=== PATIENT | female | born 1995 | race Hispanic/Latino ===

== ENCOUNTER 2019-08-17 16:28 | Inpatient (IN) | payer OTHER ==
[2019-08-17] MEDS ORDERED: PENICILLIN 5 MU in NA CHLORIDE 0.9% 100 ML IV ONE (17:09)
[2019-08-17] MEDS ORDERED: CARBOPROST TROME 250 MCG/ML IM PRN (17:09)
[2019-08-17] MEDS ORDERED: METHYLERGONOVINE 0.2MG/ML AMP IM PRN (17:09)
[2019-08-17] MEDS ORDERED: Ringers Lactate 1,000 ML IV PRN (17:09)
[2019-08-17] MEDS ORDERED: OXYTOCIN/LR 20 UNIT/1,000 ML BAG IV ONE (17:22)
[2019-08-17 17:36] LABS: Absolute Lymphocytes (CBC) 1.3 K/uL (0.7-4.9); Basophils % 0.2 % (0-1.3); Hematocrit 32.7 % (36.0-45.0); Lymphocytes % 21.4 % (15.3-44.8); MPV 12.4 fL (7.6-11.3); RBC Red Blood Cell Count 4.01 M/uL (3.86-4.86)
[2019-08-17 17:52] LABS: Urine Appearance CLEAR; Urine Bilirubin NEGATIVE (NEG); Urine Blood 2+ (NEG); Urine Color YELLOW; Urine Glucose NEGATIVE (NEG); Urine Protein NEGATIVE (NEG); Urine pH 6.5 (5.0-7.0)
[2019-08-17 17:53] VITALS: BMI 38.6
[2019-08-17 17:57] LABS: Urine Microscopic Reflex ORDER UMIC
[2019-08-17] MEDS ORDERED: Ringers Lactate 1,000 ML IV SCH (18:00)
[2019-08-17] MEDS ORDERED: OXYTOCIN/LR 20 UNIT/1,000 ML BAG IV SCH (18:00)
[2019-08-17 18:08] LABS: Urine Bacteria >50 /HPF (<20); Urine Culture Reflex Order REFLEXED; Urine Mucus 3+ /HPF (NONE SEEN)
[2019-08-17] MEDS ORDERED: FENTANYL CITR 100 MCG/2 ML IV ONE ×2 (19:15→20:30)
[2019-08-17] MEDS ORDERED: ROPIVACAINE HCL 100 ML IV PRN (19:15)
[2019-08-17] MEDS ORDERED: ROPIVACAINE HCL 2 MG/ML 100ML IV SCH (20:00)
[2019-08-17] MEDS ORDERED: FENTANYL/BUPIVACAINE/NS/PF 200 MCG/100 ML BAG EP ONE (21:01)
[2019-08-17] MEDS ORDERED: BUPIVACAINE 0.25% PF 10 ML VIAL ONE (21:04)
[2019-08-17] MEDS ORDERED: PENICILLIN 2.5 MU in NA CHLORIDE 0.9% 100 ML IV SCH ×2 (22:00→23:00)
[2019-08-18 01:06] LABS: RPR (Rapid Plasma Reagin) NON-REACT (NON-REACT)
[2019-08-18] MEDS ORDERED: ONDANSETRON 4 MG (ODT) TAB PO PRN (01:41)
[2019-08-18] MEDS ORDERED: CARBOPROST TROME 250 MCG/ML IM PRN (01:41)
[2019-08-18] MEDS ORDERED: IBUPROFEN 200 MG TAB PO PRN (01:41)
[2019-08-18] MEDS ORDERED: METHYLERGONOVINE 0.2MG/ML AMP IM PRN (01:41)
[2019-08-18] MEDS ORDERED: Oxycodone HCl/Acetaminophen 1 TAB TAB PO PRN (01:41)
[2019-08-18] MEDS ORDERED: METHYLERGONOVINE 0.2 MG TAB PO PRN (01:41)
--- NOTE | 2019-08-18 01:44 | P.BOP ---
Preoperative diagnosis: 40 wk Postoperative diagnosis: SCVD viable male infant Primary procedure: Delivery Secondary procedure: repair midline and bilateral periurethral lacerations. Estimated blood loss: 300 Anesthesia: epidural Complications: None Transferred to: Other (273) Condition: Good
[2019-08-18] MEDS ORDERED: OXYTOCIN/LR 20 UNIT/1,000 ML BAG IV SCH (02:00)
--- NOTE | 2019-08-18 18:52 | OP ---
Surgeon: Roel Gonzalez MD Ms. Gonzalez is a 24-year-old female 2, para 1-0-0-1, at 40+ weeks gestation, admitted for induction of labor secondary to post date . She had an uneventful labor and delivery. First stage of labor 7 hours and 57 minutes, second stage of labor 7 minutes. She delivered over sp ontaneous controlled vaginal delivery a 7-pound 5-ounce male , 9 and 10. After delayed c ord clamping. The cord was clamped, cut, and the placed on mother's upper abdomen. Cord bloo d was obtained. The placenta was spontaneously expelled and appeared to be intact. Intrauterine exa m revealed no retained placental fragments. She suffered a midline second-degree perineal laceration and bilateral periurethral lacerations. These were repaired in usual fashion with 3-0 Vicryl suture . She had had an epidural catheter placed and received excellent benefit from this. Quantitative bl ood loss was 113 mL. She was prophylaxed during her labor course with penicillin secondary to positiv e beta strep carriage noted during her . LYNNETTE/MAKENNA Voice ID: [id number] Report ID: [id number]
[2019-08-19 08:18] VITALS: BP 120/86; TEMP 97.3
--- NOTE | 2019-08-20 04:26 | DS ---
Date of Discharge: 08/19/2019 Final Hospital Discharge Diagnoses: Term , delivered; iron deficiency anemia. Complications: None. Procedures: Artificial rupture membranes, Pitocin induction of labor, placement of epidural catheter , prophylaxis for beta strep carriage, spontaneous controlled vaginal delivery of viable . Hospital Course: The patient is a 24-year-old female, 2, para 1-0-0-1, admi tted for induction of labor secondary to term with a favorable cervix. Labor was uncomplic ated. She delivered a 7-pound 5-ounce male , 9 and 10. She was dismissed to be seen lucrecia mary grace in my office in 1 week with prescription for Tylenol No. 3 #10 for pain relief. Lab work included an admission hemoglobin and hematocrit of 11.1 and 32.7, dismissal 30.1. She is Rh positive blood ty pe. Rubella immune. She was dismissed with the usual post vaginal delivery activity restrictions. LYNNETTE/MAKENNA Voice ID: [id number] Report ID: [id number]
[2019-08-21 21:40] LABS: HBsAG Nonreactive (Nonreactive)
== END 2019-08-19 10:55 | disposition home or self-care (01) | DRG 807 ==
LOC: 2ND-WC 16:28
PROVIDERS: ADMIT Specialist; ATTEND Specialist
PROC: 0KQM0ZZ Repair Perineum Muscle, Open Approach (ICD-10-PCS; principal; 2019-08-17)
PROC: 10E0XZZ Delivery of Products of Conception, External Approach (ICD-10-PCS; 2019-08-17)
PROC: 0UQMXZZ Repair Vulva, External Approach (ICD-10-PCS; 2019-08-17)
PROC: 10907ZC Drainage of Amniotic Fluid, Therapeutic from Products of Conception, Via Natural or Artificial Opening (ICD-10-PCS; 2019-08-17)
DX: O71.82 Other specified trauma to perineum and vulva (principal); Z37.0 Single live birth; O70.1 Second degree perineal laceration during delivery; O99.824 Streptococcus B carrier state complicating childbirth; O99.02 Anemia complicating childbirth; D50.9 Iron deficiency anemia, unspecified; Z3A.40 40 weeks gestation of pregnancy
CPT/HCPCS: 36415; 81003; 81015; 85014; 85025; 86592; 86901; 87086; 87088; 87340; J2210; J2590; J2795; J3010; J7120

== ENCOUNTER 2019-12-23 22:59 | Emergency (ER) | payer OTHER ==
[2019-12-24] MEDS ORDERED: NA CHLORIDE 0.9% 1,000 ML ONE (01:14)
[2019-12-24] MEDS ORDERED: CEFTRIAXONE/SWI 1gm 1 GM/10 ML SYR ONE (01:14)
[2019-12-24] MEDS ORDERED: FENTANYL CITR 100 MCG/2 ML ONE (01:14)
[2019-12-24 01:30] LABS: Absolute Lymphocytes (CBC) 1.1 K/uL (0.7-4.9); Basophils % 0.2 % (0-1.3); Hematocrit 35.5 % (36.0-45.0); Lymphocytes % 8.3 % (15.3-44.8); MPV 10.7 fL (7.6-11.3); RBC Red Blood Cell Count 4.65 M/uL (3.86-4.86)
[2019-12-24 01:46] LABS: BUN Blood Urea Nitrogen 7 mg/dL (7-18); Bicarbonate 26 mmol/L (21-32); Glucose Level 102 mg/dL (74-106); Potassium 3.7 mmol/L (3.5-5.1); Sodium Level 141 mmol/L (136-145)
--- NOTE | 2019-12-24 02:52 | EDPHYS ---
Physician Documentation [facility] Name: Carmella Gonzalez Age: 24 yrs Sex: Female : 1995 Arrival Date: 12/23/2019 Time: 23:00 Bed 7 Private MD: ED Physician Clark Srinivasan HPI: 12/23 00:52 This 24 yrs old Female presents to ER via Ambulatory with complaints of Breast snw Problem, Dizziness. 00:52 Onset: The symptoms/episode began/occurred gradually, 1 week(s) ago, and became worse snw and became persistent. Associated signs and symptoms: Pertinent positives: dizziness, fatigue, malaise, chills. Modifying factors: the patient symptoms are aggravated by , pressure. The patient has not experienced similar symptoms in the past. The patient has not recently seen a physician. 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 - Social history:: Smoking status: Patient denies any tobacco usage or history of. Patient uses alcohol, but reports only rare drinking. Patient/guardian denies using street drugs, IV drugs. ROS: 12/23 00:51 Constitutional: Negative for fever, chills, and weight loss, + fatigue, orthostatic snw dizziness, tenderness to left breast Eyes: Negative for injury, pain, redness, and discharge, ENT: Negative for injury, pain, and discharge, Neck: Negative for injury, pain, and swelling, Cardiovascular: Negative for chest pain, palpitations, and edema, Respiratory: Negative for shortness of breath, cough, wheezing, and pleuritic chest pain, Abdomen/GI: Negative for abdominal pain, nausea, vomiting, diarrhea, and constipation, Back: Negative for injury and pain, : Negative for injury, bleeding, discharge, and swelling, MS/Extremity: Negative for injury and deformity, Skin: Negative for injury, rash, and discoloration, Neuro: Negative for headache, weakness, numbness, tingling, and seizure. Exam: 00:51 Constitutional: This is a well developed, well nourished patient who is awake, alert, snw and in no acute distress. Head/Face: Normocephalic, atraumatic. Eyes: Pupils equal round and reactive to light, extra-ocular motions intact. Lids and lashes normal. Conjunctiva and sclera are non-icteric and not injected. Cornea within normal limits. Periorbital areas with no swelling, redness, or edema. ENT: Nares patent. No nasal discharge, no septal abnormalities noted. Tympanic membranes are normal and external auditory canals are clear. Oropharynx with no redness, swelling, or masses, exudates, or evidence of obstruction, uvula midline. Mucous membranes moist. Neck: Trachea midline, no thyromegaly or masses palpated, and no cervical lymphadenopathy. Supple, full range of motion without nuchal rigidity, or vertebral point tenderness. No Meningismus. Cardiovascular: Regular rate and rhythm with a normal S1 and S2. No gallops, murmurs, or rubs. Normal PMI, no JVD. No pulse deficits. Respiratory: Lungs have equal breath sounds bilaterally, clear to auscultation and percussion. No rales, rhonchi or wheezes noted. No increased work of breathing, no retractions or nasal flaring. Abdomen/GI: Soft, non-tender, with normal bowel sounds. No distension or tympany. No guarding or rebound. No evidence of tenderness throughout. Back: No spinal tenderness. No costovertebral tenderness. Full range of motion. Skin: Warm, dry with normal turgor. Normal color with no rashes, no lesions, and no evidence of cellulitis. MS/ Extremity: Pulses equal, no cyanosis. Neurovascular intact. Full, normal range of motion. Neuro: Awake and alert, GCS 15, oriented to person, place, time, and situation. Cranial nerves II-XII grossly intact. Motor strength 5/5 in all extremities. Sensory grossly intact. Cerebellar exam normal. Normal gait. Psych: Awake, alert, with orientation to person, place and time. Behavior, mood, and affect are within normal limits. 00:51 Chest/axilla: Inspection: normal, Palpation: tenderness, that is moderate, of the left breast, Breasts: tenderness, that is moderate, of the left breast, at 7-9 O'clock postition. Vital Signs: 12/22 23:20 BP 125 / 87; Pulse 101; Resp 18; Temp 98.4(TE); Pulse Ox 98% ; Weight 99.79 kg; Height ao 5 ft. 5 in. (165.10 cm); Pain /10; 12/23 01:54 BP 107 / 68; Pulse 79; Resp 18; Pulse Ox 99% on R/A; wh 12/22 23:20 Body Mass Index 36.61 (99.79 kg, 165.10 cm) ao MDM: 00:56 Patient medically screened. snw 01:54 Data reviewed: vital signs, nurses notes. Data interpreted: Pulse oximetry: on room air snw is 99 %. Interpretation: normal. Counseling: I had a detailed discussion with the patient and/or guardian regarding: the historical points, exam findings, and any diagnostic results supporting the discharge/admit diagnosis, lab results, the need for outpatient follow up, to return to the emergency department if symptoms worsen or persist or if there are any questions or concerns that arise at home. Special discussion: Based on the history and exam findings, there is no indication for further emergent testing or inpatient evaluation. I discussed with the patient/guardian the need to see the OB Gyne specialist for further evaluation of the symptoms. 12/23 00:55 Order name: CBC with Diff; Complete Time: 01:50 snw 12/23 00:55 Order name: Chem 7; Complete Time: 01:50 snw Administered Medications: 01:11 Drug: NS 0.9% 1000 ml Route: IV; Rate: 1 bolus; Site: right antecubital; 01:53 Follow up: Response: No adverse reaction; IV Status: Completed infusion 01:13 Drug: Rocephin 1 grams Route: IV; Rate: calculated rate; Site: right antecubital; 01:53 Follow up: Response: No adverse reaction; IV Status: Completed infusion 01:15 Drug: fentaNYL (PF) 25 mcg {Note: RASS 0.} Route: IVP; Site: right antecubital; 01:53 Follow up: Response: No adverse reaction; Pain is decreased; RASS: Alert and Calm (0) Disposition: 06:49 Co-signature as Attending Physician, Clark Srinivasan MD. [email or web address] Disposition: 12/24/19 01:53 Discharged to Home. Impression: Nonpurulent mastitis associated with . - Condition is Stable. - Discharge Instructions: and Mastitis, Heat Therapy. - Prescriptions for Dicloxacillin 500 mg Oral Capsule - take 1 capsule by ORAL route every 6 hours for 10 days; 40 capsule. - Medication Reconciliation Form, Thank You Letter, Antibiotic Education, Prescription Opioid Use form. - Follow up: Emergency Department; When: As needed; Reason: Worsening of condition. Follow up: Private Physician; When: 1 - 2 days; Reason: Recheck today's complaints, Continuance of care, Re-evaluation by your physician. - Notes: Please continue Signatures: Dispatcher [employer] EDMS Darling Duff, OTM CONSULTANT-C OTM CONSULTANT-Csnw Jf Brantley, RN RN Nish Bach Maurice, MD MD [email or web address] Corrections: (The following items were deleted from the chart) 02:02 01:53 12/24/2019 01:53 Discharged to Home. Impression: Nonpurulent mastitis associated wh with . Condition is Stable. Discharge Instructions: and Mastitis. Prescriptions for Dicloxacillin 500 mg Oral Capsule - take 1 capsule by ORAL route every 6 hours for 10 days; 40 capsule. and Forms are Medication Reconciliation Form, Thank You Letter, Antibiotic Education, Prescription Opioid Use. Follow up: Emergency Department; When: As needed; Reason: Worsening of condition. Follow up: Private Physician; When: 1 - 2 days; Reason: Recheck today's complaints, Continuance of care, Re-evaluation by your physician. snw
--- NOTE | 2019-12-24 02:52 | ER ---
Nurse's Notes [facility] Name: Carmella Gonzalez Age: 24 yrs Sex: Female : 1995 Arrival Date: 12/23/2019 Time: 23:00 Bed 7 Private MD: Diagnosis: Nonpurulent mastitis associated with Presentation: 12/22 23:20 Chief complaint: Patient states: Pt is breast pumping to feed her baby and today ao started been tired and weakness and her breast started hurt and swelling. Pt states that she feels like getting and infection and she noticed a pus like coming out her breast. Pt also report a PE that was just about to be treated and then it was disappeared. Coronavirus screen: Proceed with normal triage. Ebola Screen: Patient negative for fever greater than or equal to 101.5 degrees Fahrenheit, and additional compatible Ebola Virus Disease symptoms Patient denies exposure to infectious person. Patient denies travel to an Ebola-affected area in the 21 days before illness onset. Initial Sepsis Screen: Does the patient meet any 2 criteria? No. Patient's initial sepsis screen is negative. Does the patient have a suspected source of infection? Yes: Other: Breast infection. Risk Assessment: Do you want to hurt yourself or someone else? Patient reports no desire to harm self or others. Onset of symptoms was December 16, 2019. 23:20 Method Of Arrival: Ambulatory ao 23:20 Acuity: BEBA 3 ao 23:27 Chief complaint:. 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 - Social history:: Smoking status: Patient denies any tobacco usage or history of. Patient uses alcohol, but reports only rare drinking. Patient/guardian denies using street drugs, IV drugs. Screenin/14 01:00 Abuse screen: Denies threats or abuse. Nutritional screening: No deficits noted. ea Tuberculosis screening: No symptoms or risk factors identified. Fall Risk IV access (20 points). Assessment: 01:00 General: Appears uncomfortable, Behavior is calm, cooperative, appropriate for age. ea Pain: Complains of pain in left breast. Neuro: Level of Consciousness is awake, alert, obeys commands, Oriented to person, place, time, situation. Respiratory: Airway is patent Respiratory effort is even, unlabored, Respiratory pattern is regular, symmetrical. Derm: Reports pt reports she is breast feeding and her left breast is clogged. 01:54 Reassessment: Patient appears in no apparent distress at this time. No changes from previously documented assessment. Patient and/or family updated on plan of care and expected duration. Pain level reassessed. Patient is alert, oriented x 3, equal unlabored respirations, skin warm/dry/pink. Patient states feeling better. Patient states symptoms have improved. Vital Signs: 12/22 23:20 BP 125 / 87; Pulse 101; Resp 18; Temp 98.4(TE); Pulse Ox 98% ; Weight 99.79 kg; Height ao 5 ft. 5 in. (165.10 cm); Pain 6/10; 12/23 01:54 BP 107 / 68; Pulse 79; Resp 18; Pulse Ox 99% on R/A; wh 12/22 23:20 Body Mass Index 36.61 (99.79 kg, 165.10 cm) ao ED Course: 12/22 23:00 Patient arrived in ED. cl3 23:24 Triage completed. ao 23:27 Arm band placed on right wrist. Patient notified of wait time. ao 12/23 00:45 Darling Duff FNP-C is PHCP. snw 00:45 Clark Srinivasan MD is Attending Physician. snw 00:56 Nish Jimenez is Primary Nurse. wh 01:00 Patient has correct armband on for positive identification. Bed in low position. Call ea light in reach. Side rails up X 1. 01:00 Inserted saline lock: 20 gauge in right antecubital area, using aseptic technique. ea Blood collected. 01:54 No provider procedures requiring assistance completed. IV discontinued, intact, bleeding controlled, No redness/swelling at site. Administered Medications: 01:11 Drug: NS 0.9% 1000 ml Route: IV; Rate: 1 bolus; Site: right antecubital; wh 01:53 Follow up: Response: No adverse reaction; IV Status: Completed infusion 01:13 Drug: Rocephin 1 grams Route: IV; Rate: calculated rate; Site: right antecubital; 01:53 Follow up: Response: No adverse reaction; IV Status: Completed infusion 01:15 Drug: fentaNYL (PF) 25 mcg {Note: RASS 0.} Route: IVP; Site: right antecubital; 01:53 Follow up: Response: No adverse reaction; Pain is decreased; RASS: Alert and Calm (0) Outcome: 01:53 Discharge ordered by . cherie 01:55 Discharged to home ambulatory. 01:55 Condition: stable 01:55 Discharge instructions given to patient, Instructed on discharge instructions, follow up and referral plans. medication usage, POC Demonstrated understanding of instructions, follow-up care, medications, POC Prescriptions given X 1. 02:02 Patient left the ED. Signatures: Darling Duff, AIR BAG STRIPPER-C AIR BAG STRIPPER-Csnw Jf Brantley, RN RN Patricia Gardiner RN Nish Lozano ea Sidney, Maria G cl3 Corrections: (The following items were deleted from the chart) 12/22 23:28 23:20 Chief complaint: Patient states: Pt is breast pumping to feed her baby and today ao started been tired and weakness and her breast started hurt and swelling. Pt states that she feels like getting and infection and she noticed a pus like coming out her breast. ao
[2019-12-24 03:12] VITALS: TEMP 98.4
[2019-12-24 03:13] VITALS: BP 107/68; O2SAT 99
== END 2019-12-24 02:02 | disposition home or self-care (01) ==
LOC: ER 22:59
DX: O91.23 Nonpurulent mastitis associated with lactation (principal)
CPT/HCPCS: 96365; 85025; 80048; 36415; 96375; 99284; J3010; J0696; J7030